=== PATIENT | female | born 1995 | race Hispanic/Latino ===

== ENCOUNTER 2021-04-27 18:00 | Inpatient (IN) | payer OTHER ==
[~2021-04-27 18:00] MED LIST: Bupivacaine 0.25% HCL 30 ML VIAL ONE; Bupivacaine PF 0.5% 30 ML VIAL ONE; Lidocaine 2% MPF 10 ML AMP (For Epidural Use) ONE
[2021-04-27] MEDS ORDERED: hydrALAZINE 20 MG/ML VIAL SLOW IVP PRN (20:09)
[2021-04-27] MEDS ORDERED: Ibuprofen 800 MG TAB PO PRN (20:09)
[2021-04-27] MEDS ORDERED: Lidocaine 1% (PF) 30 ML VIAL SC PRN (20:09)
[2021-04-27] MEDS ORDERED: Ondansetron PF 4 MG/2 ML Vial IVP PRN (20:09)
[2021-04-27] MEDS ORDERED: Misoprostol 100 MCG TAB VAG SCH (20:09)
[2021-04-27] MEDS ORDERED: Promethazine HCl 25 MG/ML VIAL IM PRN (20:09)
[2021-04-27] MEDS ORDERED: HYDROcodone/Acetaminophen 5/325 mg Tablet PO PRN ×2 (20:09)
[2021-04-27] MEDS ORDERED: Penicillin G Potassium 5 MILL.UNITS in Sodium Chloride 0.9% 100 ML IVPB SCH (20:09)
[2021-04-27 20:10] VITALS: BMI 55.7
[2021-04-27] MEDS: Lactated Ringer's 1,000 ML IV SCH (20:50)
[2021-04-27] MEDS ORDERED: NS w/ Oxytocin 30 units 500 ML IVPB SCH (21:00)
[2021-04-27] MEDS ORDERED: NS w/ Oxytocin 30 units 500 ML IV SCH ×2 (21:00)
[2021-04-27 21:54] LABS: Hemoglobin 11.6 g/dL (12.0-15.5); Mean Corpuscular HGB CONC 31.6 g/dL (32.0-36.0); Mean Corpuscular Hemoglobin 24.8 pg (27.0-33.0); Mean Corpuscular Volume 78.6 fl (81.6-98.3); Mean Platelet Volume 10.8 fl (7.4-10.4); Platelet Count 405 10x3/uL (150-450); RBC Distribution Width 14.4 % (11.5-14.5); Red Blood Cell (RBC) Count 4.67 10x6/uL (3.90-5.03); White Blood Cell (WBC) Count 15.9 10x3/uL (3.5-10.5)
[2021-04-27 22:28] LABS: Hep B Surf Ag Non-Reactive S/CO (NonReactive); Syphilis Antibody Nonreactive (Nonreactive); Syphilis Antibody Index 0.08 S/CO (<1.00 Non-Reactive)
[2021-04-27 23:03] LABS: HBSAg Index 0.15 S/CO (0-0.99)
[2021-04-28] MEDS: Penicillin G 2.5 MILL.units 2.5 MILL.UNITS in Premix Bag 1 BAG IVPB SCH ×7 (02:04→21:01)
[2021-04-28] MEDS: Butorphanol Tartrate 1 MG/ML VIAL SLOW IVP PRN ×2 (02:39→06:22)
[2021-04-28] MEDS: Misoprostol 100 MCG TAB VAG SCH ×6 (04:42→20:59)
[2021-04-28] MEDS ORDERED: Levothyroxine Sodium 125 MCG TAB PO SCH (07:00)
[2021-04-28] MEDS ORDERED: Fentanyl 2 mcg/Bup 0.1% Cadd 100 ML ONE (08:26)
[2021-04-28] MEDS: Lactated Ringer's 1,000 ML IV SCH ×3 (08:44→21:01)
[2021-04-28] MEDS ORDERED: Ondansetron PF 4 MG/2 ML Vial IVP PRN ×3 (09:10→22:04)
[2021-04-28] MEDS ORDERED: diphenhydrAMINE 50 MG/ML VIAL IVP PRN ×2 (09:10→21:41)
[2021-04-28] MEDS ORDERED: Naloxone HCl 0.4 mg/ml Vial IVP PRN ×4 (09:10→21:41)
[2021-04-28] MEDS ORDERED: Lactated Ringer's 500 ML IV PRN (09:10)
[2021-04-28] MEDS ORDERED: Acetaminophen 325 MG TAB PO PRN (09:10)
[2021-04-28] MEDS ORDERED: ePHEDrine Sulfate 50 MG/10 ML VIAL SLOW IVP PRN (09:10)
[2021-04-28] MEDS ORDERED: Hydrocerin (Eucerin) Cream 120 gm Jar TOP PRN ×2 (09:10→21:41)
[2021-04-28] MEDS ORDERED: Promethazine HCl 25 MG/ML VIAL IM PRN ×2 (09:10→21:41)
[2021-04-28] MEDS ORDERED: Communication Order-Pharmacy FS SCH ×2 (09:15→21:45)
[2021-04-28] MEDS: Labetalol 100 MG TAB PO SCH ×2 (09:23→21:00)
[2021-04-28] MEDS: Fentanyl 2 mcg/Bupivacaine 0.1% Cassette 100 ML EPIDURAL SCH ×2 (13:42→17:01)
[2021-04-28] MEDS ORDERED: Fentanyl 100 MCG/2 ML VIAL ONE ×3 (13:43→18:26)
[2021-04-28] MEDS ORDERED: Bicitra 30 ML UDCUP PO PRN (17:17)
[2021-04-28] MEDS ORDERED: Famotidine/PF 20 mg/2ml Vial SLOW IVP PRN (17:17)
[2021-04-28] MEDS ORDERED: CEFAZOLIN 2 GM in Premix Bag 1 BAG IVPB SCH (17:30)
[2021-04-28] MEDS ORDERED: Azithromycin 500 MG in Sodium Chloride 0.9% 250 ML 250 ML IVPB SCH (17:30)
[2021-04-28] MEDS ORDERED: Famotidine/PF 20 mg/2ml Vial ONE (17:31)
[2021-04-28] MEDS ORDERED: Azithromycin 500 MG VIAL ONE (17:34)
[2021-04-28] MEDS ORDERED: Morphine PF 10 MG/10 ML VIAL ONE (18:26)
[2021-04-28] MEDS ORDERED: ePHEDrine Sulfate 50 MG/10 ML VIAL ONE (18:34)
[2021-04-28] MEDS ORDERED: Phenylephrine 40 MG/NS 250 ML 250 ML ONE ×2 (18:35→19:27)
[2021-04-28] MEDS ORDERED: PHENYLEPHRINE-NS 100 MCG/ML 10 ML SYRINGE ONE (19:26)
[2021-04-28] MEDS ORDERED: Oxytocin 10 UNITS/ML VIAL ONE (19:26)
[2021-04-28 19:36] LABS: pH (Cord, venous) 7.144 (7.250-7.350)
[2021-04-28] MEDS ORDERED: Ondansetron HCl/PF 4 MG/2 ML Vial IVP PRN (21:41)
[2021-04-28] MEDS ORDERED: Fentanyl 100 MCG/2 ML VIAL SLOW IVP PRN (21:41)
[2021-04-28] MEDS ORDERED: Promethazine HCl 25 MG SUPP PR PRN (21:41)
[2021-04-28] MEDS ORDERED: HYDROmorphone 2 MG/ML VIAL SLOW IVP PRN (21:41)
[2021-04-28] MEDS ORDERED: Meperidine HCl/PF 25 MG/ML VIAL SLOW IVP PRN (21:41)
[2021-04-28] MEDS ORDERED: Ketorolac Tromethamine 30 MG/ML VIAL IVP PRN (21:41)
[2021-04-28] MEDS ORDERED: Ketorolac Tromethamine 30 MG/ML VIAL IVP SCH (21:45)
[2021-04-28] MEDS ORDERED: Boostrix 0.5 ML (Tdap) VIAL IM ONE (22:04)
[2021-04-28] MEDS ORDERED: Bisacodyl 10 MG SUPP PR PRN (22:04)
[2021-04-28] MEDS ORDERED: diphenhydrAMINE 25 MG CAP PO PRN (22:04)
[2021-04-28] MEDS ORDERED: Lanolin Ointment 7 GM TUBE TOP PRN (22:04)
[2021-04-28] MEDS ORDERED: hydrALAZINE 20 MG/ML VIAL SLOW IVP PRN (22:04)
[2021-04-28] MEDS ORDERED: Docusate Calcium (SURFAK) 240 MG CAP PO SCH (22:15)
[2021-04-28] MEDS ORDERED: NS w/ Oxytocin 30 units 500 ML IV SCH (22:15)
[2021-04-29 06:04] LABS: Hemoglobin 10.5 g/dL (12.0-15.5); Mean Corpuscular HGB CONC 31.9 g/dL (32.0-36.0); Mean Corpuscular Hemoglobin 24.8 pg (27.0-33.0); Mean Corpuscular Volume 77.8 fl (81.6-98.3); Mean Platelet Volume 10.2 fl (7.4-10.4); Platelet Count 298 10x3/uL (150-450); RBC Distribution Width 14.5 % (11.5-14.5); Red Blood Cell (RBC) Count 4.23 10x6/uL (3.90-5.03); White Blood Cell (WBC) Count 15.8 10x3/uL (3.5-10.5)
[2021-04-29] MEDS: Levothyroxine Sodium 125 MCG TAB PO SCH (07:09)
[2021-04-29] MEDS: Ferrous Sulfate 325 MG TAB PO SCH ×2 (07:51→19:43)
[2021-04-29] MEDS: Prenatal Vitamin 1 TAB PO SCH (08:18)
[2021-04-29] MEDS: Docusate Calcium (SURFAK) 240 MG CAP PO SCH ×2 (08:18→22:05)
[2021-04-29] MEDS: HYDROcodone/Acetaminophen 5/325 mg Tablet PO PRN ×3 (08:20→22:06)
[2021-04-29] MEDS: Simethicone Chewable 80 MG TAB PO PRN ×2 (08:24→08:32)
[2021-04-29] MEDS: Labetalol 100 MG TAB PO SCH ×2 (09:00→21:00)
[2021-04-29] MEDS: Naloxone HCl 0.4 mg/ml Vial IV PRN ×3 (09:44→10:44)
[2021-04-29] MEDS ORDERED: HYDROcodone/Acetaminophen 5/325 mg Tablet PO PRN (09:45)
[2021-04-29] MEDS: Ibuprofen 800 MG TAB PO SCH (16:31)
[2021-04-30] MEDS: Ibuprofen 800 MG TAB PO SCH ×2 (00:46→07:59)
[2021-04-30] MEDS: Levothyroxine Sodium 125 MCG TAB PO SCH (05:36)
[2021-04-30] MEDS: Ferrous Sulfate 325 MG TAB PO SCH (08:34)
[2021-04-30] MEDS: Labetalol 100 MG TAB PO SCH (08:35)
[2021-04-30] MEDS: Prenatal Vitamin 1 TAB PO SCH (09:32)
[2021-04-30] MEDS: Docusate Calcium (SURFAK) 240 MG CAP PO SCH (09:33)
[2021-04-30 10:57] VITALS: BP 129/77; TEMP 98.3
== END 2021-04-30 15:55 | disposition home or self-care (01) | DRG 787 ==
LOC: CSHLD 19:19 → CSHPED 04-28 22:45
PROVIDERS: ADMIT Obstetrics & Gynecology; ATTEND Obstetrics & Gynecology
PROC: 10D00Z1 Extraction of Products of Conception, Low, Open Approach (ICD-10-PCS; principal; 2021-04-28)
DX: O76 Abnormality in fetal heart rate and rhythm complicating labor and delivery (principal); O10.92 Unspecified pre-existing hypertension complicating childbirth; Z3A.38 38 weeks gestation of pregnancy; Z37.0 Single live birth; O99.284 Endocrine, nutritional and metabolic diseases complicating childbirth; E03.9 Hypothyroidism, unspecified; O99.214 Obesity complicating childbirth; E66.01 Morbid (severe) obesity due to excess calories; O99.824 Streptococcus B carrier state complicating childbirth; O32.8XX0 Maternal care for other malpresentation of fetus, not applicable or unspecified; O99.52 Diseases of the respiratory system complicating childbirth; J45.909 Unspecified asthma, uncomplicated
CPT/HCPCS: 36415; 51702; 82805; 85027; 86780; 86850; 86900; 86901; 87340; J0360; J0595; J0690; J1885; J2274; J2310; J2540; J2590; J3010; J3490; J7120; S0020; S0028

== ENCOUNTER 2021-08-19 23:24 | Emergency (ER) | payer OTHER ==
[2021-08-20] MEDS ORDERED: Morphine 4 MG/ML VIAL ONE (00:02)
[2021-08-20] MEDS ORDERED: Ondansetron PF 4 MG/2 ML Vial ONE (00:02)
[2021-08-20 00:06] LABS: #Basophils 0.1 10x3/uL (0.0-0.2); #Eosinphils 0.4 10x3/uL (0.0-0.5); #Monocytes 1.1 10x3/uL (0.0-1.1); #Neutrophils 14.6 10x3/uL (1.5-8.4); %Basophils 0.5 % (0.0-2.0); %Lymphocytes 17.8 % (18.0-47.0); %Monocytes 5.6 % (0.0-10.0); %Neutrophils 73.7 % (40.0-75.0); Hemoglobin 11.9 g/dL (12.0-15.5); Mean Corpuscular HGB CONC 30.5 g/dL (32.0-36.0); Mean Corpuscular Hemoglobin 23.7 pg (27.0-33.0); Mean Corpuscular Volume 77.5 fl (81.6-98.3); Platelet Count 453 10x3/uL (150-450); RBC Distribution Width 15.1 % (11.5-14.5); Red Blood Cell (RBC) Count 5.03 10x6/uL (3.90-5.03); White Blood Cell (WBC) Count 19.8 10x3/uL (3.5-10.5)
[2021-08-20 00:13] LABS: BHCG - Serum Negative (NEGATIVE); Pregs Control Background? CLEAR/WHITE (CLR/WHITE); Pregs Control Bar Appear? YES (CONTROL BAR)
[2021-08-20 00:21] LABS: ALT (SGPT) 19 U/L (8-55); AST (SGOT) 25 U/L (5-34); Albumin 3.9 g/dL (3.5-5.0); Alkaline Phosphatase 84 U/L (40-110); Anion Gap 15 mmol/L (10-20); BUN (Urea Nitrogen) 15 mg/dL (7.0-18.7); Bilirubin, Total 0.3 mg/dL (0.2-1.2); Calc. Creatinine Clearance 0 mL/min (70-130); Calcium 8.7 mg/dL (7.8-10.44); Carbon Dioxide 22 mmol/L (22-29); Chloride 105 mmol/L (98-107); Glucose 94 mg/dL (70-105); Lipase 13 U/L (8-78); Potassium 3.8 mmol/L (3.5-5.1); Protein, Total 6.9 g/dL (6.0-8.3); Sodium 138 mmol/L (136-145)
[2021-08-20 00:48] LABS: Bilirubin Neg (Negative); Blood, Urine Negative (Negative); Clarity Slightly Cloudy (Clear); Glucose, Urine (Dipstick) Normal (Negative); Ketone, Urine 150 mg/dL (Negative); Leukocyte 100 (Negative); Nitrite Negative (Negative); Protein, Urine (Dipstick) 30 mg/dl (Neg-Trace); Urobilinogen Normal mg/dL (Less than 2)
[2021-08-20 00:55] LABS: RBC/HPF 0-3 HPF (0-3)
[2021-08-20 00:56] LABS: Bacteria/HPF 1+ HPF (None Seen); Transitional Epithelial 0-3 HPF (None Seen)
== END 2021-08-20 03:41 | disposition home or self-care (01) ==
LOC: CSHERS 23:24
DX: R10.11 Right upper quadrant pain (principal); R00.0 Tachycardia, unspecified; J45.909 Unspecified asthma, uncomplicated; E03.9 Hypothyroidism, unspecified
CPT/HCPCS: 74177; 76705; 80053; 81003; 81015; 83690; 84484; 84703; 85025; 93005; 96374; 96375; J2270; J2405